=== PATIENT | male | born 1990 ===

== ENCOUNTER 2018-09-28 22:46 | Emergency (ER) | payer SELFPAY ==
[2018-09-28 22:58] VITALS: O2SAT 99
--- NOTE | 2018-09-28 23:03 | C.PDOC ---
History Of Present Illness 28 yr old male w/ no ppmhx p/w rectal bleeding. Pt notes x2 episodes of rectal bleeding, bright red when wiping and filling approximately 1/4 the toilet bowl. No constipation or diarrhea. He notes his last BM was normal in the ED, non bloody, non dark. No abdominal pain. No fall or trauma. No dysuria, urgency or frequency. First time occurence. No weight loss. No blood thinners usage. No family hx of bleeding disorders. No other complaints. Time Seen by Provider: 09/28/18 23:03 Chief Complaint (Nursing): Male Genitourinary Past Medical History Vital Signs: Last Vital Signs Temp 98.2 F 09/28/18 22:56 Pulse 64 09/28/18 22:56 Resp 20 09/28/18 22:56 BP 142/89 09/28/18 22:56 Pulse Ox 99 09/28/18 22:56 Primary Care Provider: FAMILY PROVIDER,NO Family History: States: Unknown Family Hx - Social History Hx Alcohol Use: No Hx Substance Use: No - Immunization History Hx Tetanus Toxoid Vaccination: No Hx Influenza Vaccination: No Hx Pneumococcal Vaccination: No Review Of Systems Constitutional: Negative for: Fever, Chills, Sweats, Weakness, Malaise Eyes: Negative for: Pain, Vision Change ENT: Negative for: Ear Pain, Ear Discharge, Nose Pain, Nose Discharge Cardiovascular: Negative for: Chest Pain, Palpitations, Orthopnea Respiratory: Negative for: Cough, Shortness of Breath Gastrointestinal: Positive for: Melena. Negative for: Nausea, Vomiting, Abdominal Pain, Diarrhea, Constipation, Rectal Pain Genitourinary: Negative for: Dysuria, Frequency, Incontinence, Hematuria Musculoskeletal: Negative for: Neck Pain, Shoulder Pain, Arm Pain Skin: Negative for: Rash, Lesions, Jaundice, Bruising Neurological: Negative for: Weakness, Numbness, Headache Psych: Negative for: Anxiety, Depression Physical Exam - Physical Exam Appears: Well, Non-toxic, No Acute Distress Skin: Normal Color, Warm, Dry Head: Atraumatic, Normacephalic Eye(s): bilateral: Normal Inspection, PERRL, EOMI Nose: Normal, No Flaring, No Discharge Oral Mucosa: Moist Tongue: Normal Appearing Lips: Normal Appearing Teeth: Normal Dentition Gingiva: Normal Appearing Throat: Normal, No Erythema, No Exudate Neck: Normal, Normal ROM, Supple, Other (no meningeal signs) Cardiovascular: Rhythm Regular Respiratory: Normal Breath Sounds Gastrointestinal/Abdominal: Normal Exam, Soft, No Tenderness, No Organomegaly, No Mass, No Distention, No Guarding, No Rebound, No Hernia, No Ascites Rectal: No Maroon Stool, No Melena, No Blood Streaked Stool, Hemorrhoids (external, non thrombosed x2 at 6 oclock), No Mass, No Tenderness Back: Normal Inspection, No CVA Tenderness, No Vertebral Tenderness Extremity: Normal ROM, No Tenderness Neurological/Psych: Oriented x3, Normal Speech, Normal Cognition Gait: Steady ED Course And Treatment - Laboratory Results Result Diagrams: 09/28/18 23:42 09/28/18 23:42 O2 Sat by Pulse Oximetry: 99 Medical Decision Making Medical Decision Makin yr old male p/w rectal bleeding, painless. No abd pain, Hemrrhoid noted on exam, non thrombosed. No maroon stool or BRBPR noted on my exam. likely hemorrhoid type bleed. No unintentional weight loss, trauma or blood thinners. Last BM here in ED was normal. pending labs 0013 abd remains non-ttp labs unremarkable likely hemorrhoid type bleed endorsed pt to get OTC preparation H and to follow up w/ GI he is agreeable to plan Disposition - Disposition Referrals: Sukhdev Blanton MD [Staff Provider] - [facility] [place] [Outside] [facility] [Outside] [facility] [Outside] Disposition: HOME/ ROUTINE Disposition Time: 00:15 Condition: STABLE Additional Instructions: FOLLOW UP with DR. BLANTON IN REGARDS TO YOUR HEMORRHOID BLEED. GET PREPERATION H DISCUSSED FOR THE BLEEDING Instructions: Hemorrhoids (DC) Forms: [employer] (Arabic) - Clinical Impression Clinical Impression: Bleeding external hemorrhoids, Acute hemorrhoid
[2018-09-28 23:48] LABS: BASO # 0.1 K/uL (0.0-0.2); BASO % 1.1 % (0.0-2.0); EOS # 0.4 K/uL (0.0-0.7); EOS % 5.2 % (0.0-4.0); HEMOGLOBIN 14.7 g/dL (12.0-18.0); LYMPH # 2.7 K/uL (1.0-4.3); LYMPH % 36.9 % (20.0-40.0); MEAN CELL VOLUME 78.7 fL (80.0-94.0); MEAN CORPUSCULAR HEMOGLOBIN 27.7 pg (27.0-31.0); MEAN CORPUSCULAR HGB CONC 35.2 g/dL (33.0-37.0); MEAN PLATELET VOLUME 8.4 fL (7.2-11.7); MONO # 0.6 K/uL (0.0-0.8); MONO % 8.3 % (0.0-10.0); NEUT # 3.6 K/uL (1.8-7.0); NEUT % 48.5 % (50.0-75.0); NRBC % 0.1 % (0.0-2.0); RBC 5.3 Mil/uL (4.40-5.90); RED CELL DISTRIBUTION WIDTH 13.5 % (11.5-14.5); WHITE BLOOD COUNT 7.3 K/uL (4.8-10.8)
[2018-09-29] LABS: INR 0.9; PARTIAL THROMBOPLASTIN TIME 32.9 SECONDS (21-34)
[2018-09-29 00:05] LABS: ALB/GLOB RATIO 1.6 (1.0-2.1); ALBUMIN 4.5 g/dL (3.5-5.0); ALT/SGPT 41 U/L (21-72); AST/SGOT 32 U/L (17-59); BLOOD UREA NITROGEN 16 mg/dL (9-20); CALCIUM 9.7 mg/dl (8.6-10.4); GFR NON-AFRICAN AMERICAN > 60
[2018-09-29 00:10] LABS: PROTHROMBIN TIME 9.9 SECONDS (9.7-12.2)
[2018-09-29 00:21] VITALS: BP 134/86; PULSE 68; RESP 16; TEMP 98.3
== END 2018-09-29 00:22 | disposition home or self-care (01) ==
LOC: C.ER 22:46
DX: K64.4 Residual hemorrhoidal skin tags (principal)
CPT/HCPCS: 80053; 85025; 85610; 85730; 86850; 86900; 99284; G0328